=== PATIENT | male | born 1960 | race Caucasian/White ===

== ENCOUNTER 2017-08-02 09:05 | Emergency (ER) | payer SELFPAY ==
[2017-08-02] MEDS ORDERED: Proparacaine 0.5% Opth 15 ML BOT ONE (10:27)
[2017-08-02] MEDS ORDERED: Fluorescein Opthalmic Strip ONE (10:27)
== END 2017-08-02 11:25 | disposition home or self-care (01) ==
LOC: ERS 09:05
DX: T15.11XA Foreign body in conjunctival sac, right eye, initial encounter (principal)
CPT/HCPCS: 99283

== ENCOUNTER → 2017-08-03 | Day surgery (SDC) | payer OTHER, SELFPAY ==
[~2017-08-03] MED LIST: Bupivacaine 0.75% 10 ML AMP ONE; Fentanyl 100 MCG/2 ML VIAL ONE; Midazolam HCl 2 mg/2 ml Vial ONE; Pilocarpine 1% Ophth Drops 15 ML BOT R EYE SCH; VANCOMYCIN HCL FS SCH
--- NOTE | 2017-08-04 12:53 | OP ---
DATE OF PROCEDURE: 08/03/2017 SURGEON: Scott Jamil M.D. CLINICAL SUMMARY: The patient is a 57-year-old man who while pounding on metal 5 days previously rec eived a metallic foreign body embedded deep in the right cornea. Attempts at removal in the office s eemed to make it go deeper with aqueous fluid leaking past the foreign body. PREOPERATIVE DIAGNOSIS: Corneal foreign body, right eye. POSTOPERATIVE DIAGNOSIS: Corneal foreign body, right eye. PROCEDURE: Removal of corneal foreign body, right eye. ANESTHESIA: Retrobulbar block with monitored anesthesia control. DESCRIPTION OF PROCEDURE: The patient was given a retrobulbar block of a 50/50 mixture of 0.75% Jalil wenceslao and 4% lidocaine while in the preoperative holding area. He was then taken to the operating teodoro m and prepped and draped in the usual manner for ocular surgery. PROCEDURES: The patient was taken to the operating room where he was prepped and draped in the usual manner for ocular surgery for the right eye. The foreign body was located midway between the periph dolores and center of the cornea, about the 4 o'clock meridian. An access tunnel was created at the 7 o' clock limbus. Ultimately, the viscoelastic arrived at the operating room and this was irrigated into the anterior chamber. An L-shaped 27 gauge cannula was passed through the access incision and place d against the posterior opening of the wound and the BSS irrigated, pushing the foreign body out onto the corneal surface. Then, additional BSS was irrigated into the anterior chamber to irrigate the v iscoelastic out. A fairly easy egress of the anterior chamber fluids was through the foreign body wo und. Once the majority of viscoelastic was out, a cross suture was placed across the foreign body wo und. There continued to be free flow and this was not stopped until [address] across the wound. Then, a single 10-0 nylon suture was placed across the access wound. Vancomycin , 1/10 mL of 10 mg per mL was irrigated into the anterior chamber. Maxitrol ointment was placed in t he upper and lower conjunctival sacs and the eye patch closed with a tight pressure dressing. The pa tient was then taken to the recovery area in satisfactory condition. DISCHARGE SUMMARY: On 08/03/2017 the patient underwent removal of a right corneal foreign body which had penetrated into the anterior chamber, but was still in the substance of the cornea. This was wi th retrobulbar block plus monitored anesthesia control. There were no complications. The patient wa s discharged home to be seen in my office the following day.
== END | disposition home or self-care (01) ==
LOC: SDC 15:30
PROVIDERS: ATTEND Ophthalmology
PROC: 08C8XZZ Extirpation of Matter from Right Cornea, External Approach (ICD-10-PCS; principal; 2017-08-03)
DX: T15.01XA Foreign body in cornea, right eye, initial encounter (principal)
CPT/HCPCS: J2250; J3010; J3370; J3490

== ENCOUNTER 2021-12-20 13:46 | Outpatient (CLI) | payer OTHER | END 2021-12-20 13:47 | disposition home or self-care (01) | LOC: BICULT 13:46 | PROVIDERS: ATTEND Physician Assistant | DX: J44.0 Chronic obstructive pulmonary disease with (acute) lower respiratory infection (principal); R09.89 Other specified symptoms and signs involving the circulatory and respiratory systems; F17.299 Nicotine dependence, other tobacco product, with unspecified nicotine-induced disorders | CPT/HCPCS: 71046; 93880 ==

== ENCOUNTER 2022-01-01 18:29 | Inpatient (IN) | payer SELFPAY ==
[2022-01-01 18:56] LABS: #Basophils 0.1 thou/uL (0.0-0.2); #Eosinphils 0.6 thou/uL (0.0-0.7); #Lymphocytes 2.2 thou/uL (1.20-3.40); #Monocytes 0.8 thou/uL (0.11-0.59); #Neutrophils 6.7 thou/uL (1.40-6.50); %Basophils 0.9 % (0.0-1.0); %Eosinophils 5.8 % (0.0-10.0); %Lymphocytes 21.2 % (21.0-51.0); %Monocytes 7.7 % (0.0-10.0); %Neutrophils 64.4 % (42.0-75.0); Hemoglobin 16.3 g/dL (14.0-18.0); Mean Corpuscular HGB CONC 33.3 g/dL (32.0-36.0); Mean Corpuscular Hemoglobin 32.8 pg (27.0-31.0); Mean Corpuscular Volume 98.3 fL (78.0-98.0); Mean Platelet Volume 7.3 fL (7.4-10.4); Platelet Count 218 thou/uL (130-400); RBC Distribution Width 12.5 % (11.5-14.5); Red Blood Cell (RBC) Count 4.98 mill/uL (4.70-6.10); White Blood Cell (WBC) Count 10.3 thou/uL (4.8-10.8)
[2022-01-01 19:14] LABS: ALT (SGPT) 26 U/L (8-55); AST (SGOT) 36 U/L (5-34); Albumin 3.7 g/dL (3.5-5.0); Alkaline Phosphatase 108 U/L (40-110); Anion Gap 12 mmol/L (10-20); BUN (Urea Nitrogen) 22 mg/dL (8.4-25.7); Bilirubin, Total 0.3 mg/dL (0.2-1.2); Calc. Creatinine Clearance 0 mL/min (70-130); Calcium 8.9 mg/dL (7.8-10.44); Carbon Dioxide 27 mmol/L (22-29); Chloride 105 mmol/L (98-107); Globulin 3.8 g/dL (2.4-3.5); Glucose 83 mg/dL (70-105); Potassium 4.8 mmol/L (3.5-5.1); Protein, Total 7.5 g/dL (6.0-8.3); Sodium 139 mmol/L (136-145)
[2022-01-01] MEDS ORDERED: Atropine Sulfate 1 mg/10 ml Syringe ONE (20:54)
[2022-01-01] MEDS ORDERED: Mag-Al 1200 mg/1200 mg/30 ML UDCUP ONE (21:09)
[2022-01-01] MEDS ORDERED: Lidocaine Viscous Sol 2% 15 ml UD Cup ONE (21:09)
[2022-01-01] MEDS ORDERED: Aspirin 325 MG TAB ONE (22:04)
[2022-01-01 22:26] LABS: Magnesium 1.9 mg/dL (1.6-2.6)
[2022-01-01 22:31] LABS: Troponin I Less than 0.010 ng/mL (< 0.028)
[2022-01-01] MEDS ORDERED: Zolpidem Tartrate 5 MG TAB PO PRN (23:00)
[2022-01-01] MEDS ORDERED: HYDROcodone/Acetaminophen 5/325 mg Tablet PO PRN (23:00)
[2022-01-01] MEDS ORDERED: Ondansetron PF 4 MG/2 ML Vial IVP PRN (23:00)
[2022-01-01] MEDS ORDERED: Guaifenesin DM 100-10/5 ML UDCUP PO PRN (23:00)
[2022-01-01 23:15] VITALS: BMI 19.3
[2022-01-01] MEDS ORDERED: Aspirin 325 MG TAB PO SCH (23:30)
[2022-01-02] MEDS: Nicotine 21 MG PATCH TD SCH (00:34)
[2022-01-02] MEDS: Nitroglycerin 2% Ointment 1 INCH/1 GM Packet TOP SCH ×3 (00:35→16:41)
[2022-01-02] MEDS: Sodium Chloride 0.9% 1,000 ML IV SCH ×2 (01:10→18:40)
[2022-01-02 01:23] LABS: Troponin I Less than 0.010 ng/mL (< 0.028)
[2022-01-02 04:49] LABS: #Basophils 0.1 thou/uL (0.0-0.2); #Eosinphils 0.5 thou/uL (0.0-0.7); #Lymphocytes 1.8 thou/uL (1.20-3.40); #Monocytes 0.9 thou/uL (0.11-0.59); #Neutrophils 4.9 thou/uL (1.40-6.50); %Basophils 0.8 % (0.0-1.0); %Eosinophils 6.4 % (0.0-10.0); %Lymphocytes 22.2 % (21.0-51.0); %Monocytes 10.7 % (0.0-10.0); %Neutrophils 59.8 % (42.0-75.0); Hemoglobin 15.6 g/dL (14.0-18.0); Mean Corpuscular HGB CONC 32.6 g/dL (32.0-36.0); Mean Corpuscular Hemoglobin 32.4 pg (27.0-31.0); Mean Corpuscular Volume 99.4 fL (78.0-98.0); Mean Platelet Volume 7.5 fL (7.4-10.4); Platelet Count 162 thou/uL (130-400); RBC Distribution Width 12.4 % (11.5-14.5); Red Blood Cell (RBC) Count 4.82 mill/uL (4.70-6.10); White Blood Cell (WBC) Count 8.2 thou/uL (4.8-10.8)
[2022-01-02 05:06] LABS: Anion Gap 10 mmol/L (10-20); BUN (Urea Nitrogen) 22 mg/dL (8.4-25.7); Calc. Creatinine Clearance 71 mL/min (70-130); Calcium 8.7 mg/dL (7.8-10.44); Carbon Dioxide 26 mmol/L (22-29); Cardiac Risk 2.9 (Less than 4.5); Chloride 106 mmol/L (98-107); Cholesterol 167 mg/dl (< 200 Desired); Glucose 100 mg/dL (70-105); HDL Cholesterol 57 mg/dL (>60 Neg Risk); LDL Cholesterol, Calculated 84 mg/dL; Potassium 3.9 mmol/L (3.5-5.1); Sodium 138 mmol/L (136-145); Triglycerides 132 mg/dL (Less than 150)
[2022-01-02] MEDS ORDERED: Regadenoson 0.4 MG/5 ML SYRINGE ONE (09:03)
[2022-01-02 12:32] LABS: SARS-CoV-2 PCR by NAA Not Detected (NotDetected)
[2022-01-02] MEDS: Famotidine 20 MG TAB PO SCH ×2 (13:53→20:55)
[2022-01-02] MEDS: Aspirin Chewable 81 MG TAB PO SCH (13:53)
[2022-01-02] MEDS: Clopidogrel Bisulfate 75 MG TAB PO SCH (13:53)
[2022-01-02] MEDS: Enoxaparin Sodium 40 MG/0.4 ML SYRINGE SC SCH (13:53)
[2022-01-02] MEDS ORDERED: Meclizine HCl 12.5 MG TAB PO PRN (16:00)
[2022-01-02] MEDS: Atorvastatin Calcium 40 MG TAB PO SCH (20:56)
[2022-01-03] MEDS: Nitroglycerin 2% Ointment 1 INCH/1 GM Packet TOP SCH ×4 (01:38→22:55)
[2022-01-03] MEDS: Nicotine 21 MG PATCH TD SCH ×2 (01:38→22:55)
[2022-01-03] MEDS ORDERED: Fentanyl 100 MCG/2 ML VIAL ONE ×2 (07:33→13:30)
[2022-01-03] MEDS: Sodium Chloride 0.9% 1,000 ML IV SCH (09:29)
[2022-01-03] MEDS ORDERED: Iopamidol-370 76% 500 ML 1 ML ONE (13:13)
[2022-01-03] MEDS ORDERED: ePHEDrine 50 MG/ML VIAL ONE (13:33)
[2022-01-03] MEDS ORDERED: PROPOFOL 200 MG/20 ML VIAL ONE (13:33)
[2022-01-03] MEDS: Aspirin Chewable 81 MG TAB PO SCH (14:23)
[2022-01-03] MEDS: Enoxaparin Sodium 40 MG/0.4 ML SYRINGE SC SCH (14:23)
[2022-01-03] MEDS: Famotidine 20 MG TAB PO SCH ×2 (14:23→20:03)
[2022-01-03] MEDS: Clopidogrel Bisulfate 75 MG TAB PO SCH (14:23)
[2022-01-03] MEDS: Atorvastatin Calcium 40 MG TAB PO SCH (20:03)
[2022-01-04] MEDS: Famotidine 20 MG TAB PO SCH (08:57)
[2022-01-04] MEDS: Clopidogrel Bisulfate 75 MG TAB PO SCH (08:57)
[2022-01-04] MEDS: Aspirin Chewable 81 MG TAB PO SCH (08:57)
[2022-01-04] MEDS: Enoxaparin Sodium 40 MG/0.4 ML SYRINGE SC SCH (08:57)
[2022-01-04] MEDS: Nitroglycerin 2% Ointment 1 INCH/1 GM Packet TOP SCH (08:58)
[2022-01-04 09:29] VITALS: BP 105/55; TEMP 97.9
== END 2022-01-04 11:15 | disposition home or self-care (01) | DRG 309 ==
LOC: ERS 18:29 → 2SW 21:48 → OBSVTOIN 01-02 15:48
PROVIDERS: ADMIT Student in an Organized Health Care Education/Training Program; ATTEND Student in an Organized Health Care Education/Training Program
PROC: B24BZZ4 Ultrasonography of Heart with Aorta, Transesophageal (ICD-10-PCS; principal; 2022-01-03)
DX: R00.1 Bradycardia, unspecified (principal); Q23.1 Congenital insufficiency of aortic valve; R42 Dizziness and giddiness; R07.89 Other chest pain; Z20.822 Contact with and (suspected) exposure to COVID-19; J44.9 Chronic obstructive pulmonary disease, unspecified; F17.210 Nicotine dependence, cigarettes, uncomplicated; I45.10 Unspecified right bundle-branch block; Z28.310 Unvaccinated for COVID-19; Z82.49 Family history of ischemic heart disease and other diseases of the circulatory system; Z87.01 Personal history of pneumonia (recurrent)
CPT/HCPCS: 36415; 70450; 70551; 71045; 71275; 74174; 78452; 80048; 80053; 80061; 83735; 84443; 84484; 85025; 93005; 93017; 93306; 93312; 93880; 94760; 96372; 96374; A9500; G0378; J0461; J1650; J2704; J2785; J3010; J3490; J7050; Q9967; U0003; U0005

== ENCOUNTER 2023-08-19 15:12 | Outpatient (CLI) | payer OTHER | END 2023-08-19 15:13 | disposition home or self-care (01) | LOC: BICRAD 15:12 | PROVIDERS: ATTEND Preventive Medicine Occupational Medicine | DX: M25.511 Pain in right shoulder (principal); I35.0 Nonrheumatic aortic (valve) stenosis; J43.9 Emphysema, unspecified; J44.9 Chronic obstructive pulmonary disease, unspecified | CPT/HCPCS: 71046 ==